=== PATIENT | male | born 1960 | race Caucasian/White ===

== ENCOUNTER 2022-03-04 07:46 | Emergency (ER) | payer BC, OTHER ==
--- NOTE | 2022-03-04 07:57 | ERPHSYRPT ---
- History of Present Illness Time Seen by Provider: 03/04/22 07:57 Historian: patient Exam Limitations: no limitations Physician History: This is a 61-year-old white male patient who has had a gastric bypass performed approximately 15 years ago in [facility] by Dr. Ríos. He presents with 1 month history of intermittent spontaneous nausea and vomiting that is been occurring every 2 to 3 days. He denies chest pain. He denies abdominal pain. He has had no diarrhea but occasionally has loose stools. What brought him in today is that he was feeling weak. He is still able to eat or drink but he is not eating or drinking as he did prior to 1 month ago. Patient has a history of diabetes and hypertension. He has no shortness of breath. He has not had any fevers Timing/Duration: other (Symptoms present for a month) Activities at Onset: none Severity of Pain-Max: none Severity of Pain-Current: none Modifying Factors: Improves With: vomiting Associated Symptoms: nausea, vomiting, weakness, No chest pain, No diarrhea, No fever/chills, No headache, No shortness of breath Previous symptoms: same symptoms as today, no recent treatment Allergies/Adverse Reactions: No Known Drug Allergies Allergy (Unverified 01/01/16 05:13) Home Medications: Aspirin/Calcium Carbonate/Mag [Aspirin Buffered 325 mg Tab] 325 mg PO DAILY 01/01/16 [History] Enalapril Maleate 10 mg [Vasotec 10 MG] 20 mg PO DAILY 01/01/16 [History] Ergocalciferol (Vitamin D2) [Vitamin D] 50,000 unit PO UD 01/01/16 [History] Hx Tetanus, Diphtheria Vaccination/Date Given: No Hx Influenza Vaccination/Date Given: Yes Hx Pneumococcal Vaccination/Date Given: No Travel Risk - International Travel Have you traveled outside of the country in past 3 weeks: No - Coronavirus Screening Are you exhibiting any of the following symptoms?: Yes Symptoms: Vomiting/Diarrhea Close contact with a COVID-19 positive Pt in past 14-21 Days: No - Review of Systems Constitutional: Weakness Eyes: No Symptoms Ears, Nose, & Throat: No Symptoms Respiratory: No Symptoms Cardiac: No Symptoms Abdominal/Gastrointestinal: Nausea, Vomiting, No Abdominal Pain, No Diarrhea, No Constipation Genitourinary Symptoms: No Symptoms Musculoskeletal: No Symptoms Skin: No Symptoms Neurological: No Symptoms Psychological: No Symptoms Endocrine: No Symptoms Hematologic/Lymphatic: No Symptoms Immunological/Allergic: No Symptoms All Other Systems: Reviewed and Negative - Past Medical History Pertinent Past Medical History: Yes Neurological History: No Pertinent History ENT History: Cataracts Cardiac History: Hypertension Respiratory History: No Pertinent History Endocrine Medical History: Diabetes Type II Musculoskeletal History: No Pertinent History GI Medical History: Other History: No Pertinent History Psycho-Social History: No Pertinent History Male Reproductive Disorders: No Pertinent History Other Medical History: ORAL CANCER - Past Surgical History Past Surgical History: Yes Neuro Surgical History: No Pertinent History Cardiac: No Pertinent History Respiratory: No Pertinent History Gastrointestinal: Other Genitourinary: No Pertinent History Musculoskeletal: No Pertinent History Male Surgical History: No Pertinent History Other Surgical History: GASTRIC BYPASS. REMOVAL OF ORAL CANCER 3 YRS AGO - Social History Smoking Status: Never smoker Exposure to second hand smoke: No Drug Use: none Patient Lives Alone: No - Nursing Vital Signs Nursing Vital Signs: Initial Vital Signs Temperature 97.2 F 03/04/22 07:57 Pulse Rate 92 H 03/04/22 07:57 Respiratory Rate 18 03/04/22 07:57 Blood Pressure 169/107 03/04/22 07:57 O2 Sat by Pulse Oximetry 99 03/04/22 07:57 Pain Scale Pain Intensity 2 - Physical Exam General Appearance: no apparent distress, alert, anxiety Eye Exam: PERRL/EOMI, eyes nml inspection Ears, Nose, Throat Exam: normal ENT inspection, moist mucous membranes Neck Exam: normal inspection, non-tender, supple, full range of motion Respiratory Exam: normal breath sounds, lungs clear, airway intact, No chest tenderness, No respiratory distress Cardiovascular Exam: regular rate/rhythm, normal heart sounds, normal peripheral pulses Gastrointestinal/Abdomen Exam: soft, normal bowel sounds, No tenderness, No guarding Rectal Exam: not done Back Exam: normal inspection, normal range of motion, No CVA tenderness, No vertebral tenderness Extremity Exam: normal inspection, normal range of motion, pelvis stable Neurologic Exam: alert, oriented x 3, cooperative, drug safety associate II-XII nml as tested, normal mood/affect, nml cerebellar function, nml station & gait, sensation nml Skin Exam: normal color, warm, dry Lymphatic Exam: No adenopathy SpO2 Interpretation: normal O2 Delivery: Room Air - Course Nursing assessment & vital signs reviewed: Yes EKG Interpreted by Me: RATE, Sinus Rhythm, NORMAL AXIS, NORMAL INTERVALS, NORMAL QRS, NORMAL ST-T, Other (No acute ischemic changes on today's EKG.) Ordered Tests: Active Orders 24 hr Category Date Time Status EKG-ER Only STAT Care 03/04/22 08:18 Active IV Insertion STAT Care 03/04/22 08:18 Active ABDOMEN AND PELVIS W/0 CONTRAS [CT] Stat Exams 03/04/22 08:18 Completed AMYLASE Stat Lab 03/04/22 08:00 Completed CBC W DIFF Stat Lab 03/04/22 08:00 Completed CMP Stat Lab 03/04/22 08:00 Completed LIPASE Stat Lab 03/04/22 08:00 Completed Lactic Acid Stat Lab 03/04/22 08:18 Completed Lactic Acid Stat Lab 03/04/22 10:34 Received TROPONIN Q4H Lab 03/04/22 08:00 Completed TROPONIN Q4H Lab 03/04/22 12:30 Ordered TROPONIN Q4H Lab 03/04/22 16:30 Ordered UA W/RFX CULTURE Stat Lab 03/04/22 10:24 Completed Medication Summary Generic Name Dose Route Start Last Admin Trade Name Freq PRN Reason Stop Dose Admin Sodium Chloride 1,000 mls @ 999 mls/hr 03/04/22 10:57 03/04/22 11:03 Sodium Chloride 0.9% 1000 Ml IV 03/04/22 11:57 999 mls/hr .Q1H1M STA Administration Discontinued Medications Generic Name Dose Route Start Last Admin Trade Name Freq PRN Reason Stop Dose Admin Sodium Chloride 1,000 mls @ 999 mls/hr 03/04/22 08:18 03/04/22 10:36 Sodium Chloride 0.9% 1000 Ml IV 03/04/22 09:18 Infused .Q1H1M STA Infusion Sodium Chloride Confirm 03/04/22 08:29 Sodium Chloride 0.9% 1000 Ml Administered 03/04/22 08:30 Dose 1,000 mls @ ud .ROUTE .STK-MED ONE Sodium Chloride Confirm 03/04/22 11:02 Sodium Chloride 0.9% 1000 Ml Administered 03/04/22 11:03 Dose 1,000 mls @ ud .ROUTE .STK-MED ONE Ondansetron HCl 4 mg 03/04/22 08:18 03/04/22 08:30 Ondansetron Hcl 4 Mg/2 Ml Vial IV 03/04/22 08:19 4 mg STAT ONE Administration Ondansetron HCl Confirm 03/04/22 08:29 Ondansetron Hcl 4 Mg/2 Ml Vial Administered 03/04/22 08:30 Dose 4 mg .ROUTE .STK-MED ONE Pantoprazole Sodium 40 mg 03/04/22 08:18 03/04/22 08:30 Pantoprazole 40 Mg Vial IV 03/04/22 08:19 40 mg STAT ONE Administration Pantoprazole Sodium Confirm 03/04/22 08:29 Pantoprazole 40 Mg Vial Administered 03/04/22 08:30 Dose 40 mg IV .STK-MED ONE Lab/Rad Data: Laboratory Result Diagrams 03/04/22 08:00 03/04/22 08:00 Laboratory Results 03/04/22 03/04/22 03/04/22 Range/Units 10:24 08:32 08:18 WBC (4.0-10.5) x10^3/uL RBC (4.1-5.6) x10^6/uL Hgb (12.5-18.0) g/dL Hct (42-50) % MCV (78-100) fL MCH (26-32) pg MCHC (32-36) g/dL RDW (11.5-14.0) % Plt Count (150-450) x10^3/uL MPV (7.5-11.0) fL Gran % (36.0-66.0) % Immature Gran % (Auto) (0.00-0.4) % Nucleat RBC Rel Count (0.00-0.1) % Eos # (Auto) (0-0.5) x10^3/uL Immature Gran # (Auto) (0.00-0.03) x10^3u/L Absolute Lymphs (auto) (1.0-4.6) x10^3/uL Absolute Monos (auto) (0.0-1.3) x10^3/uL Absolute Nucleated RBC (0.00-0.01) x10^3u/L Lymphocytes % (24.0-44.0) % Monocytes % (0.0-12.0) % Eosinophils % (0.00-5.0) % Basophils % (0.0-0.4) % Absolute Granulocytes (1.4-6.9) x10^3/uL Basophils # (0-0.4) x10^3/uL Sodium (137-145) mmol/L Potassium (3.5-5.1) mmol/L Chloride (98-107) mmol/L Carbon Dioxide (22-30) mmol/L Anion Gap (5-15) MEQ/L BUN (9-20) mg/dL Creatinine (0.66-1.25) mg/dL Estimated GFR ML/MIN Glucose (74-106) mg/dL Lactic Acid 2.5 H (0.4-2.0) Calcium (8.4-10.2) mg/dL Total Bilirubin (0.2-1.3) mg/dL AST (17-59) U/L ALT (0-50) U/L Alkaline Phosphatase (38-126) U/L Troponin I (0.000-0.034) ng/mL Serum Total Protein (6.3-8.2) g/dL Albumin (3.5-5.0) g/dL Amylase (30-110) U/L Lipase (23-300) U/L Urinalys Dipstick Clnc MAIN LAB Urine Color YELLOW (YELLOW) Urine Appearance CLEAR (CLEAR) Urine pH 7.0 (5-6) Ur Specific Vance 1.025 (1.005-1.025) POC Urine Protein Conf NEGATIVE (Negative) Urine Ketones NEGATIVE (NEGATIVE) Urine Nitrite NEGATIVE (NEGATIVE) Urine Bilirubin NEGATIVE (NEGATIVE) Urine Urobilinogen 0.2 (0-1) mg/dL Urine Leukocytes NEGATIVE (NEGATIVE) Urine WBC (Auto) 0-2 (0-5) /HPF Urine RBC (Auto) 0-2 (0-2) /HPF U Epithel Cells (Auto) RARE (FEW) /HPF Urine Bacteria (Auto) RARE (NEGATIVE) /HPF Urine RBC NEGATIVE (0-5) Franki/ul Urine Mucus (Auto) SLIGHT A (NEGATIVE) /HPF Ur Culture Indicated? NO Urine Glucose NEGATIVE (NEGATIVE) mg/dL Influenza Type A Ag NEGATIVE (NEGATIVE) Influenza Type B Ag NEGATIVE (NEGATIVE) RSV (PCR) NEGATIVE (Negative) SARS-CoV-2 (PCR) NEGATIVE (NEGATIVE) 03/04/22 03/04/22 03/04/22 Range/Units 08:00 08:00 08:00 WBC 5.3 (4.0-10.5) x10^3/uL RBC 4.62 (4.1-5.6) x10^6/uL Hgb 14.2 (12.5-18.0) g/dL Hct 43.6 (42-50) % MCV 94.4 (78-100) fL MCH 30.7 (26-32) pg MCHC 32.6 (32-36) g/dL RDW 13.1 (11.5-14.0) % Plt Count 240 (150-450) x10^3/uL MPV 11.1 H (7.5-11.0) fL Gran % 65.8 (36.0-66.0) % Immature Gran % (Auto) 0.2 (0.00-0.4) % Nucleat RBC Rel Count 0.0 (0.00-0.1) % Eos # (Auto) 0.10 (0-0.5) x10^3/uL Immature Gran # (Auto) 0.01 (0.00-0.03) x10^3u/L Absolute Lymphs (auto) 1.31 (1.0-4.6) x10^3/uL Absolute Monos (auto) 0.37 (0.0-1.3) x10^3/uL Absolute Nucleated RBC 0.00 (0.00-0.01) x10^3u/L Lymphocytes % 24.7 (24.0-44.0) % Monocytes % 7.0 (0.0-12.0) % Eosinophils % 1.9 (0.00-5.0) % Basophils % 0.4 (0.0-0.4) % Absolute Granulocytes 3.50 (1.4-6.9) x10^3/uL Basophils # 0.02 (0-0.4) x10^3/uL Sodium 135 L (137-145) mmol/L Potassium 4.4 (3.5-5.1) mmol/L Chloride 102 (98-107) mmol/L Carbon Dioxide 28 (22-30) mmol/L Anion Gap 9.3 (5-15) MEQ/L BUN 7 L (9-20) mg/dL Creatinine 0.70 (0.66-1.25) mg/dL Estimated GFR > 60.0 ML/MIN Glucose 171 H (74-106) mg/dL Lactic Acid (0.4-2.0) Calcium 9.3 (8.4-10.2) mg/dL Total Bilirubin 0.90 (0.2-1.3) mg/dL AST 30 (17-59) U/L ALT 20 (0-50) U/L Alkaline Phosphatase 70 (38-126) U/L Troponin I < 0.012 (0.000-0.034) ng/mL Serum Total Protein 6.9 (6.3-8.2) g/dL Albumin 3.9 (3.5-5.0) g/dL Amylase 44 (30-110) U/L Lipase 31 (23-300) U/L Urinalys Dipstick Clnc Urine Color (YELLOW) Urine Appearance (CLEAR) Urine pH (5-6) Ur Specific Vance (1.005-1.025) POC Urine Protein Conf (Negative) Urine Ketones (NEGATIVE) Urine Nitrite (NEGATIVE) Urine Bilirubin (NEGATIVE) Urine Urobilinogen (0-1) mg/dL Urine Leukocytes (NEGATIVE) Urine WBC (Auto) (0-5) /HPF Urine RBC (Auto) (0-2) /HPF U Epithel Cells (Auto) (FEW) /HPF Urine Bacteria (Auto) (NEGATIVE) /HPF Urine RBC (0-5) Franki/ul Urine Mucus (Auto) (NEGATIVE) /HPF Ur Culture Indicated? Urine Glucose (NEGATIVE) mg/dL Influenza Type A Ag (NEGATIVE) Influenza Type B Ag (NEGATIVE) RSV (PCR) (Negative) SARS-CoV-2 (PCR) (NEGATIVE) - Progress Progress: improved, re-examined Progress Note: 03/04/22 09:12 CT scan of the abdomen pelvis without contrast shows mild diffuse fecal stasis. There is a normal appendix. The noncontrasted stomach and bowel loops appear nonobstructed Counseled pt/family regarding: lab results, diagnosis, need for follow-up, rad results - Departure Departure Disposition: Home Clinical Impression: Recurrent vomiting Condition: Stable Critical Care Time: No Referrals: [facility] [NON-STAFF PHY W/O PRIVILEGES] - Follow up/PCP as directed Additional Instructions: Drink plenty of clear liquids. Call your prescribing provider and your gastric bypass surgeon for further recommendations and management. Take your medications as prescribed Prescriptions: Ondansetron ODT 4 MG [Zofran Odt 4 mg] 4 mg PO Q6H PRN PRN #10 tablet PRN Reason: Vomiting
[2022-03-04] MEDS ORDERED: Sodium Chloride 0.9% 1000 ML 1,000 ML IV STA ×2 (08:18→10:57)
[2022-03-04] MEDS ORDERED: PROTONIX 40 MG IV IV ONE ×2 (08:18→08:29)
[2022-03-04] MEDS ORDERED: Zofran 4 MG/2 ML VIAL IV ONE (08:18)
[2022-03-04 08:29] LABS: Basophil (Absolute #) 0.02 x10^3/uL (0-0.4); Eosinophil % 1.9 % (0.00-5.0); Hematocrit 43.6 % (42-50); Hemoglobin 14.2 g/dL (12.5-18.0); Lymphocyte (Absolute #) 1.31 x10^3/uL (1.0-4.6); Lymphocytes % 24.7 % (24.0-44.0); Mean Cell Volume 94.4 fL (78-100); Mean Corpuscular Hemoglobin 30.7 pg (26-32); Mean Corpuscular Hgb Concent. 32.6 g/dL (32-36); Mean Platelet Volume 11.1 fL (7.5-11.0); Monocyte (Absolute #) 0.37 x10^3/uL (0.0-1.3); Neutrophil % 65.8 % (36.0-66.0); Platelet Count 240 x10^3/uL (150-450); Red Blood Count 4.62 x10^6/uL (4.1-5.6); Red Cell Distribution Width 13.1 % (11.5-14.0); White Blood Count 5.3 x10^3/uL (4.0-10.5)
[2022-03-04] MEDS ORDERED: Sodium Chloride 0.9% 1000 ML 1,000 ML ONE ×2 (08:29→11:02)
[2022-03-04] MEDS ORDERED: Zofran 4 MG/2 ML VIAL ONE (08:29)
[2022-03-04 08:42] LABS: ALBUMIN 3.9 g/dL (3.5-5.0); ALKALINE PHOSPHATASE 70 U/L (38-126); AMYLASE 44 U/L (30-110); ANION GAP 9.3 MEQ/L (5-15); BLOOD UREA NITROGEN 7 mg/dL (9-20); CHLORIDE 102 mmol/L (98-107); Calcium 9.3 mg/dL (8.4-10.2); Carbon Dioxide 28 mmol/L (22-30); EST GLOMERULAR FILTRATION RATE > 60.0 ML/MIN; Glucose 171 mg/dL (74-106); LIPASE 31 U/L (23-300); Potassium 4.4 mmol/L (3.5-5.1); SGOT/AST 30 U/L (17-59); SGPT/ALT 20 U/L (0-50); SODIUM 135 mmol/L (137-145); Total Protein 6.9 g/dL (6.3-8.2)
--- NOTE | 2022-03-04 09:08 | XRAY ---
Indication: One month nausea and vomiting. Weakness. Multiple contiguous axial images obtained through the abdomen and pelvis without contrast. Comparison: None Lung bases demonstrate mild dependent atelectasis. No infiltrate or effusion. Heart not enlarged. There has been gastric bypass surgery. Noncontrasted stomach and bowel loops appear nonobstructed with normal appendix. Mild diffuse scattered colonic fecal debris throughout. Partially contracted gallbladder without gallstones or biliary distention. Tiny hepatic/splenic calcific granulomas. No free fluid/air. Remaining liver, gallbladder, pancreas, spleen, adrenal glands, kidneys, ureters, and bladder are unremarkable for noncontrast exam. Minimal aortoiliac calcifications without AAA. Osseous structures intact with mild degenerative changes throughout the thoracolumbar spine. No ventral or inguinal hernias. Impression: 1. Mild diffuse fecal stasis, multilevel degenerative spondylosis, arteriosclerotic disease, and old granulomatous disease. 2. Remaining CT abdomen/pelvis without contrast exam is negative.
[2022-03-04 09:10] LABS: INFLUENZA A NEGATIVE (NEGATIVE); INFLUENZA B NEGATIVE (NEGATIVE); RESPIRATORY SYNCTIAL VIRUS NEGATIVE (Negative); SARS-CoV-2 Xpert Express NEGATIVE (NEGATIVE)
[2022-03-04 10:56] LABS: Mucus SLIGHT /HPF (NEGATIVE)
[2022-03-04 10:57] LABS: Appearance CLEAR (CLEAR)
[2022-03-04 10:58] LABS: Bilirubin NEGATIVE (NEGATIVE); Dipstick done @ ? MAIN LAB; Glucose NEGATIVE (NEGATIVE); Ketones NEGATIVE (NEGATIVE); Nitrite NEGATIVE (NEGATIVE); Protein,Urine Dip NEGATIVE (Negative); RBC NEGATIVE Ery/ul (0-5); Specific Gravity 1.025 (1.005-1.025); Urobilinogen 0.2 mg/dL (0-1)
[2022-03-04 11:02] LABS: Bacteria RARE /HPF (NEGATIVE); Epithelial Cells RARE /HPF (FEW); RBC 0-2 /HPF (0-2); Urine Cultured Indicated? NO; WBC 0-2 /HPF (0-5)
[2022-03-04 12:24] VITALS: BP 140/74; PULSE 70; O2SAT 97
== END 2022-03-04 12:24 | disposition home or self-care (01) ==
LOC: ED 07:46
DX: R11.2 Nausea with vomiting, unspecified (principal); R53.1 Weakness; E11.9 Type 2 diabetes mellitus without complications; I10 Essential (primary) hypertension; Z79.899 Other long term (current) drug therapy
CPT/HCPCS: 0241U; 36000; 36415; 74176; 80053; 81015; 82150; 83605; 83690; 84484; 85025; 93005; 96360; 96361; 96374; 96375; 99284; J2405

== ENCOUNTER 2022-04-14 05:59 | Day surgery (SDC) | payer OTHER ==
[2022-04-14] MEDS ORDERED: Lactated Ringers 1,000 ML IV SCH (06:30)
[2022-04-14] MEDS ORDERED: Xylocaine-Mpf 2% 5 Ml Vial ONE (07:49)
[2022-04-14] MEDS ORDERED: DIPRIVAN 200 MG/20 ML IV ONE ×2 (07:49→08:04)
[2022-04-14] MEDS ORDERED: Versed 2 MG/2 ML Injection ONE (07:49)
[2022-04-14 08:58] VITALS: O2SAT 99
[2022-04-14 09:02] VITALS: BP 122/83; PULSE 52
--- NOTE | 2022-04-14 11:52 | OP ---
SURGERY DATE/TIME: 04/14/2022 0752 PREOPERATIVE DIAGNOSIS: Screening exam. POSTOPERATIVE DIAGNOSIS: Mild sigmoid diverticulosis otherwise normal colon. PROCEDURE: Colonoscopy. SURGEON: Dr. Shelton. ANESTHESIA: MAC. Medications given by anesthesia department. HISTORY: The patient is a 61-year-old white male presenting now for screening colonoscopy. He reports he had a normal exam ten years ago. He is having no problems presently. The patient is felt the need to have endoscopic evaluation for screening. He was appraised of the risks of the procedure including the risk of perforation, phlebitis, untoward reaction to medication, bleeding and missed lesions. The patient verbalized his understanding and desired to have the procedure performed. DESCRIPTION OF PROCEDURE: The patient was given the medications by the anesthesia department. He had continuous pulse oximetry, ECG monitoring and intermittent blood pressure monitoring during the examination. He was placed in the left lateral decubitus position. A digital rectal examination was performed and revealed normal anal sphincter tone, no masses and a normal prostate. The flexible Olympus pediatric colonoscope was used to intubate the rectum. A view of the colon was developed sequentially to the cecum. Upon insertion and withdrawal was noted a few scattered sigmoid diverticula otherwise no other mucosal lesions were encountered. The scope was removed from the patient who tolerated the procedure well and was sent back to OP recovery in good condition. The prep was noted to be good.
== END 2022-04-14 09:08 | disposition home or self-care (01) ==
LOC: SDC 05:59
PROVIDERS: ATTEND Family Medicine
DX: Z12.11 Encounter for screening for malignant neoplasm of colon (principal); K57.30 Diverticulosis of large intestine without perforation or abscess without bleeding
CPT/HCPCS: J2250; J2704

== ENCOUNTER 2022-10-23 20:47 | Emergency (ER) | payer OTHER ==
--- NOTE | 2022-10-23 20:53 | ERPHSYRPT ---
- History of Present Illness Time Seen by Provider: 10/23/22 20:53 Historian: patient, family Exam Limitations: no limitations Physician History: This is a 62-year-old white male patient of Dr. Marin who underwent a gastric bypass procedure approximately 15 years ago in [facility] by Dr. Otto. Patient presents with his who provided independent history, with left-sided abdominal pain. He did not wake up with it but at work he noticed it present and it has worsened throughout the afternoon and evening. It is worse and described as stabbing and sharp when he is bending over. He does not have any nausea vomiting or diarrhea symptoms. In the last 2 to 3 months the patient has lost 15 pounds. This was intentional weight loss. Patient has a history of hypertension and diabetes. He denies chest pain and he denies shortness of breath. He has had no fever cough symptoms. On the colonoscopy that was performed in January 2022, patient was told he has diverticulosis. Timing/Duration: today Quality: sharpness, stabbing Abdominal Pain Onset Location: LLQ Pain Radiation: no radiation Severity of Pain-Max: mild (To moderate when bending over) Severity of Pain-Current: mild (To moderate when bending over) Modifying Factors: Improves With: other (Worsen when he bends over) Associated Symptoms: denies symptoms Previous symptoms: no prior history Allergies/Adverse Reactions: No Known Drug Allergies Allergy (Verified 10/23/22 20:59) Home Medications: Lisinopril/Hydrochlorothiazide [Lisinopril-Hctz 20-25 mg Tab] 1 tab PO DAILY 04/02/22 [History] Trazodone HCl 300 mg PO HS 04/02/22 [History] Aspirin 325 mg PO DAILY 04/14/22 [History] Hx Tetanus, Diphtheria Vaccination/Date Given: No Hx Influenza Vaccination/Date Given: Yes Hx Pneumococcal Vaccination/Date Given: No Travel Risk - International Travel Have you traveled outside of the country in past 3 weeks: No - Coronavirus Screening Are you exhibiting any of the following symptoms?: No Close contact with a COVID-19 positive Pt in past 14-21 Days: No - Vaccine Status Have you recieved a Covid-19 vaccination: No - Review of Systems Constitutional: No Symptoms Eyes: No Symptoms Ears, Nose, & Throat: No Symptoms Respiratory: No Symptoms Cardiac: No Symptoms Abdominal/Gastrointestinal: Abdominal Pain (Left lower quadrant) Genitourinary Symptoms: No Symptoms Musculoskeletal: No Symptoms Skin: No Symptoms Neurological: No Symptoms Psychological: No Symptoms Endocrine: No Symptoms Hematologic/Lymphatic: No Symptoms Immunological/Allergic: No Symptoms All Other Systems: Reviewed and Negative - Past Medical History Pertinent Past Medical History: Yes Neurological History: No Pertinent History ENT History: Cataracts Cardiac History: Hypertension Respiratory History: No Pertinent History Endocrine Medical History: No Pertinent History Musculoskeletal History: No Pertinent History GI Medical History: Other History: No Pertinent History Psycho-Social History: No Pertinent History Male Reproductive Disorders: No Pertinent History Other Medical History: Formerly DM2 prior to gastric bypass - Past Surgical History Past Surgical History: Yes Neuro Surgical History: No Pertinent History Cardiac: No Pertinent History Respiratory: No Pertinent History Gastrointestinal: Other Genitourinary: No Pertinent History Musculoskeletal: No Pertinent History Male Surgical History: No Pertinent History Other Surgical History: GASTRIC BYPASS. REMOVAL OF ORAL CANCER 3 YRS AGO. bilateral hand surgery - Social History Smoking Status: Never smoker Exposure to second hand smoke: No Drug Use: none Patient Lives Alone: No - Nursing Vital Signs Nursing Vital Signs: Initial Vital Signs Temperature 97.9 F 10/23/22 21:00 Pulse Rate 89 10/23/22 21:00 Respiratory Rate 18 10/23/22 21:00 Blood Pressure 136/81 10/23/22 21:00 O2 Sat by Pulse Oximetry 95 10/23/22 21:00 Pain Scale Pain Intensity 7 - Physical Exam General Appearance: no apparent distress, alert Eye Exam: PERRL/EOMI, eyes nml inspection Ears, Nose, Throat Exam: normal ENT inspection, moist mucous membranes Neck Exam: normal inspection, non-tender, supple, full range of motion Cardiovascular Exam: regular rate/rhythm, normal heart sounds, normal peripheral pulses Gastrointestinal/Abdomen Exam: soft, normal bowel sounds, tenderness (If lower quadrant), guarding (Left lower quadrant to palpation), No pulsatile mass Rectal Exam: not done Back Exam: normal inspection, normal range of motion, No CVA tenderness, No vertebral tenderness Extremity Exam: normal inspection, normal range of motion, pelvis stable Neurologic Exam: alert, oriented x 3, cooperative, can operator II-XII nml as tested, normal mood/affect, nml cerebellar function, nml station & gait, sensation nml Skin Exam: normal color, warm, dry Lymphatic Exam: No adenopathy SpO2 Interpretation: normal O2 Delivery: Room Air - Course Nursing assessment & vital signs reviewed: Yes Ordered Tests: Active Orders 24 hr Category Date Time Status IV Insertion STAT Care 10/23/22 21:10 Active ABDOMEN AND PELVIS W/0 CONTRAS [CT] Stat Exams 10/23/22 21:20 Taken AMYLASE Stat Lab 10/23/22 21:29 Completed CBC W DIFF Stat Lab 10/23/22 21:29 Completed CMP Stat Lab 10/23/22 21:29 Completed LIPASE Stat Lab 10/23/22 21:29 Completed UA W/RFX UR CULTURE Stat Lab 10/23/22 21:12 Completed Medication Summary Generic Name Dose Route Start Last Admin Trade Name Freq PRN Reason Stop Dose Admin Sodium Chloride 1,000 mls @ 999 mls/hr 10/23/22 21:10 10/23/22 21:14 Sodium Chloride 0.9% 1000 Ml IV 10/23/22 22:10 999 mls/hr .Q1H1M STA Administration Discontinued Medications Generic Name Dose Route Start Last Admin Trade Name Freq PRN Reason Stop Dose Admin Sodium Chloride Confirm 10/23/22 21:14 Sodium Chloride 0.9% 1000 Ml Administered 10/23/22 21:15 Dose 1,000 mls @ ud .ROUTE .STK-MED ONE Lab/Rad Data: Laboratory Result Diagrams 10/23/22 21:29 10/23/22 21:29 Laboratory Results 10/23/22 10/23/22 10/23/22 Range/Units 21:29 21:29 21:12 WBC 8.7 (4.0-10.5) x10^3/uL RBC 4.70 (4.1-5.6) x10^6/uL Hgb 14.5 (12.5-18.0) g/dL Hct 43.3 (42-50) % MCV 92.1 (78-100) fL MCH 30.9 (26-32) pg MCHC 33.5 (32-36) g/dL RDW 12.3 (11.5-14.0) % Plt Count 250 (150-450) x10^3/uL MPV 10.8 (7.5-11.0) fL Gran % 68.0 H (36.0-66.0) % Immature Gran % (Auto) 0.3 (0.00-0.4) % Nucleat RBC Rel Count 0.0 (0.00-0.1) % Eos # (Auto) 0.19 (0-0.5) x10^3/uL Immature Gran # (Auto) 0.03 (0.00-0.03) x10^3u/L Absolute Lymphs (auto) 1.94 (1.0-4.6) x10^3/uL Absolute Monos (auto) 0.58 (0.0-1.3) x10^3/uL Absolute Nucleated RBC 0.00 (0.00-0.01) x10^3u/L Lymphocytes % 22.3 L (24.0-44.0) % Monocytes % 6.7 (0.0-12.0) % Eosinophils % 2.2 (0.00-5.0) % Basophils % 0.5 (0.0-0.4) % Absolute Granulocytes 5.92 (1.4-6.9) x10^3/uL Basophils # 0.04 (0-0.4) x10^3/uL Sodium 139 (137-145) mmol/L Potassium 4.1 (3.5-5.1) mmol/L Chloride 100 (98-107) mmol/L Carbon Dioxide 32 H (22-30) mmol/L Anion Gap 12.0 (5-15) MEQ/L BUN 16 (9-20) mg/dL Creatinine 0.93 (0.66-1.25) mg/dL Estimated GFR > 60.0 ML/MIN Glucose 88 (74-106) mg/dL Calcium 9.3 (8.4-10.2) mg/dL Total Bilirubin 0.50 (0.2-1.3) mg/dL AST 35 (17-59) U/L ALT 35 (0-50) U/L Alkaline Phosphatase 90 (38-126) U/L Serum Total Protein 7.5 (6.3-8.2) g/dL Albumin 4.3 (3.5-5.0) g/dL Amylase 65 (30-110) U/L Lipase 42 (23-300) U/L Urine Color Yellow (Yellow) Urine Appearance Clear (Clear) Urine pH 6.0 (4.6-8.0) Ur Specific [place] 1.020 (1.005-1.030) Urine Protein Negative (Negative) Urine Glucose (UA) Negative (Negative) mg/dL Urine Ketones 15 A (Negative) Urine Blood Negative (Negative) Urine Nitrite Negative (Negative) Urine Bilirubin Negative (Negative) Urine Urobilinogen 1.0 A (0.2) mg/dL Ur Leukocyte Esterase Negative (Negative) U Hyaline Cast (Auto) NONE SEEN (0-2) /LPF Urine Microscopic RBC 0-2 (0-5) /HPF Urine Microscopic WBC 0-2 (0-5) /HPF Ur Epithelial Cells None Seen (None Seen) /HPF Urine Bacteria None Seen (None Seen) /HPF Urine Culture Reflexed NO (NO) - Progress Progress: improved, pain not gone completely, re-examined Progress Note: 10/23/22 22:09 Cat scan of the abdomen pelvis without contrast shows diverticulosis without diverticulitis. This study was interpreted by the radiologist and I reviewed the impression. This patient's medical issue is 1 of moderate complexity. Level complexity in the workup performed is based on review of the patient's past medical history, review the patient's medication list, review of the patient's drug allergy list, history present illness and physical findings on examination. This workup includes placement of an intravenous line, infusion of 1 L normal saline, CBC, CMP, amylase, lipase, urinalysis, and CT scan of the abdomen and pelvis. I reviewed the results of this workup. There is no evidence of any acute, emergent process. Patient is to follow-up with his primary care provider tomorrow, 10/24/2022, for further evaluation management. Counseled pt/family regarding: lab results, diagnosis, need for follow-up, rad results Medical Desision Making - Independent Historian Additional History obtained from: Spouse - Diagnostic Testing Diagnostic test were ordered, analyzed, and reviewed by me: Yes Radiological Interpretation: Reviewed by me, Teleradiologist Report - Risk of complications Low Risk: Low risk of morbidity from additional dx testing or treatment - Departure Departure Disposition: Home Clinical Impression: Abdominal pain Condition: Stable Critical Care Time: No Referrals: BRISEYDA MARIN MD [Primary Care Provider] - Follow up/PCP as directed Additional Instructions: Drink plenty of clear liquids. Advance your diet slowly. Avoid fatty greasy spicy foods. May use Tylenol and ibuprofen for pain control. Call your primary care doctor tomorrow, 10/24/2022, to arrange a follow-up appointment for further evaluation and management.
[2022-10-23] MEDS ORDERED: Sodium Chloride 0.9% 1000 ML 1,000 ML IV STA (21:10)
[2022-10-23 21:13] VITALS: RESP 18; TEMP 97.9
[2022-10-23] MEDS ORDERED: Sodium Chloride 0.9% 1000 ML 1,000 ML ONE (21:14)
[2022-10-23 21:32] LABS: Absolute Neutrophil Ct (ANC) 5.92 x10^3/uL (1.4-6.9); BASOPHIL % 0.5 % (0.0-0.4); Basophil (Absolute #) 0.04 x10^3/uL (0-0.4); Eosinophil % 2.2 % (0.00-5.0); Eosinophil (Absolute #) 0.19 x10^3/uL (0-0.5); Hematocrit 43.3 % (42-50); Hemoglobin 14.5 g/dL (12.5-18.0); IMMATURE GRAN # 0.03 x10^3u/L (0.00-0.03); IMMATURE GRAN % 0.3 % (0.00-0.4); Lymphocyte (Absolute #) 1.94 x10^3/uL (1.0-4.6); Lymphocytes % 22.3 % (24.0-44.0); Mean Cell Volume 92.1 fL (78-100); Mean Corpuscular Hemoglobin 30.9 pg (26-32); Mean Corpuscular Hgb Concent. 33.5 g/dL (32-36); Mean Platelet Volume 10.8 fL (7.5-11.0); Monocyte (Absolute #) 0.58 x10^3/uL (0.0-1.3); Monocytes % 6.7 % (0.0-12.0); Platelet Count 250 x10^3/uL (150-450); Red Cell Distribution Width 12.3 % (11.5-14.0); White Blood Count 8.7 x10^3/uL (4.0-10.5)
[2022-10-23 21:39] LABS: Appearance Clear (Clear); Bacteria None Seen /HPF (None Seen); Bilirubin Negative (Negative); Blood Negative (Negative); Epithelial Cells None Seen /HPF (None Seen); Glucose, Urine Negative (Negative); Hyaline Casts NONE SEEN /LPF (0-2); Ketones 15 (Negative); Leukocyte Esterase Negative (Negative); Nitrite Negative (Negative); Protein,Urine Dip Negative (Negative); RBC 0-2 /HPF (0-5); WBC 0-2 /HPF (0-5)
[2022-10-23 21:42] LABS: ADD URINE CULTURE? NO (NO)
[2022-10-23 21:46] LABS: ALBUMIN 4.3 g/dL (3.5-5.0); ALKALINE PHOSPHATASE 90 U/L (38-126); AMYLASE 65 U/L (30-110); BLOOD UREA NITROGEN 16 mg/dL (9-20); CHLORIDE 100 mmol/L (98-107); Calcium 9.3 mg/dL (8.4-10.2); Carbon Dioxide 32 mmol/L (22-30); Creatinine 1 0.93 mg/dL (0.66-1.25); EST GLOMERULAR FILTRATION RATE > 60.0 ML/MIN; Glucose 88 mg/dL (74-106); LIPASE 42 U/L (23-300); Potassium 4.1 mmol/L (3.5-5.1); SGOT/AST 35 U/L (17-59); SGPT/ALT 35 U/L (0-50); SODIUM 139 mmol/L (137-145); Total Protein 7.5 g/dL (6.3-8.2)
[2022-10-23 22:20] VITALS: BP 103/49; PULSE 60; O2SAT 97
--- NOTE | 2022-10-24 08:43 | XRAY ---
Indication: Left lower quadrant pain. Multiple contiguous axial images obtained through the abdomen and pelvis without contrast. Comparison: March 04, 2022 Lung bases again demonstrates minimal dependent atelectasis. Heart not enlarged. Again previous gastric bypass surgery. Stomach demonstrates new intraluminal radiopacities either ingested medication/bismuth or barium. Noncontrasted bowel loops appear nonobstructed with normal appearing appendix. Again mild scattered descending and sigmoid diverticulosis without diverticulitis. Stable incidental tiny hepatic/splenic calcified granulomas. No free fluid/air. Remaining liver, gallbladder, pancreas, spleen, adrenal glands, kidneys, ureters, and bladder are unremarkable for noncontrast exam. Again minimal scattered aortoiliac calcifications without AAA. Osseous structures intact again with mild degenerative changes throughout the spine. Impression: 1. Again chronic findings including colonic diverticulosis, arteriosclerotic disease, degenerative spondylosis, and old granulomatous disease. 2. Remaining CT abdomen/pelvis without contrast exam continues to be negative.
== END 2022-10-23 22:28 | disposition home or self-care (01) ==
LOC: ED 20:47
DX: R10.32 Left lower quadrant pain (principal); I10 Essential (primary) hypertension; E11.9 Type 2 diabetes mellitus without complications; Z79.899 Other long term (current) drug therapy; Z28.310 Unvaccinated for COVID-19; Z98.84 Bariatric surgery status
CPT/HCPCS: 36000; 36415; 74176; 80053; 81001; 82150; 83690; 85025; 96360; 99284

== ENCOUNTER 2023-07-10 19:05 | Emergency (ER) | payer OTHER ==
[2023-07-10 20:20] VITALS: BP 178/89; PULSE 63; RESP 18; TEMP 98.6; O2SAT 93
--- NOTE | 2023-07-10 21:17 | ERPHSYRPT ---
- History of Present Illness Time Seen by Provider: 07/10/23 19:45 Source: patient Exam Limitations: physical impairment Patient Subjective Stated Complaint: C/O left hip/buttocks pain that travels down his left leg. States he has had the pain for a few days and can't get into his PCP for 3 weeks. Triage Nursing Assessment: Patient ambulated back to ER with a slow gait. Bearing weight without difficulties. He is alert and orientd. Denies falls or injury to area of pain. Skin tone normal. NO SOB. Physician History: 63 years old male presented in the ER with 3 days history of right hip pain with radiation to right upper posterior thigh without any fall or trauma. Denies any significant aggravating or relieving factors. No swelling of lower extremity. Denies any history of back pain. No numbness or tingling in the lower extremity. No loss of bowel or bladder control or perineal numbness. Patient has a minimal pain currently. Does not want any pain medications. Allergies/Adverse Reactions: No Known Drug Allergies Allergy (Verified 07/10/23 20:10) Home Medications: Lisinopril/Hydrochlorothiazide [Lisinopril-Hctz 20-25 mg Tab] 1 tab PO DAILY 0 04/02/22 [History] Trazodone HCl 300 mg PO HS 04/02/22 [History] Aspirin 325 mg PO DAILY 04/14/22 [History] Hx Tetanus, Diphtheria Vaccination/Date Given: Yes Hx Influenza Vaccination/Date Given: Yes Hx Pneumococcal Vaccination/Date Given: No Immunizations Up to Date: Yes Travel Risk - International Travel Have you traveled outside of the country in past 3 weeks: No - Emerging Infectious Disease Are you exhibiting symptoms associated with any current EIDs: No - Review of Systems Constitutional: No Symptoms Respiratory: No Symptoms Cardiac: No Symptoms Abdominal/Gastrointestinal: No Symptoms Genitourinary Symptoms: No Symptoms Musculoskeletal: Joint Pain Skin: No Symptoms Neurological: No Symptoms Psychological: No Symptoms Endocrine: No Symptoms Hematologic/Lymphatic: No Symptoms - Past Medical History Pertinent Past Medical History: Yes Neurological History: No Pertinent History ENT History: Cataracts Cardiac History: Hypertension Respiratory History: No Pertinent History Endocrine Medical History: No Pertinent History Musculoskeletal History: No Pertinent History GI Medical History: Other History: No Pertinent History Psycho-Social History: No Pertinent History Male Reproductive Disorders: No Pertinent History Other Medical History: Formerly DM2 prior to gastric bypass - Past Surgical History Past Surgical History: Yes Neuro Surgical History: No Pertinent History Cardiac: No Pertinent History Respiratory: No Pertinent History Gastrointestinal: Other Genitourinary: No Pertinent History Musculoskeletal: No Pertinent History Male Surgical History: No Pertinent History Other Surgical History: GASTRIC BYPASS, REMOVAL OF ORAL CANCER 3 YRS AGO, bilateral hand surgery - Social History Smoking Status: Never smoker Exposure to second hand smoke: No Drug Use: none Patient Lives Alone: No - Nursing Vital Signs Nursing Vital Signs: Initial Vital Signs Temperature 98.6 F 07/10/23 20:11 Pulse Rate 63 07/10/23 20:11 Respiratory Rate 18 07/10/23 20:11 Blood Pressure 178/89 07/10/23 20:11 O2 Sat by Pulse Oximetry 93 L 07/10/23 20:11 Pain Scale Pain Intensity 5 - Physical Exam General Appearance: no apparent distress, alert Neck Exam: normal inspection, full range of motion Cardiovascular/Respiratory Exam: normal breath sounds, regular rate/rhythm Gastrointestinal/Abdominal Exam: non-tender, soft Back Exam: normal inspection, normal range of motion, No CVA tenderness, No vertebral tenderness Hips Exam: right: non-tender, bone tenderness, pain, soft tissue tenderness, bilateral: normal inspection, normal range of motion, no evidence of injury Legs Exam: bilateral leg: non-tender, normal inspection, normal range of motion, no evidence of injury Knees Exam: bilateral knee: non-tender, normal inspection, normal range of motion, no evidence of injury Neuro/Tendon Exam: normal sensation, normal motor functions, normal tendon funct ions Mental Status Exam: alert, oriented x 3, cooperative Skin Exam: normal color SpO2 Interpretation: normal SpO2: 93 O2 Delivery: Room Air Ordered Tests: Active Orders 24 hr Category Date Time Status HIP UNI (2V) INCL PEL IF DONE Stat Exams 07/10/23 20:37 Taken - Progress Progress: unchanged Progress Note: 07/10/23 21:14 63-year-old with history of hypertension is evaluated in the ER for left hip pain for 3 days without fall trauma exertional activity/workout. Goes to upper posterior thigh. Patient has some tenderness in the right hip area. No swelling redness or increased temperature. Negative neuro exam in lower extremity. No muscular tenderness or swelling in the thigh/calf. Negative Homans' sign. Patient does not want any pain medications. I have obtained x- rays which are negative for fracture dislocation reviewed by me, official report is pending.. His pain could be muscle strain versus arthritis versus bursitis versus radiculopathy from back. I would give him meloxicam to go home and recommended outpatient orthopedics follow-up. Discussed signs symptoms of worsening needing return to ER which he seems understanding. 07/10/23 21:17 Counseled pt/family regarding: diagnosis, need for follow-up, rad results Medical Desision Making - Diagnostic Testing Diagnostic test were ordered, analyzed, and reviewed by me: Yes Radiological Interpretation: Interpreted by me, Reviewed by me - Risk of complications The pt has a mod risk of morbidity or mortality based on: Need for prescription drug management - Departure Departure Disposition: Home Clinical Impression: Left hip pain Condition: Stable Critical Care Time: No Referrals: BRISEYDA MARIN MD [Primary Care Provider] - Follow Up with PCP/3 days ESTEFANÍA LAUREANO MD [ACTIVE STAFF] - Follow up/PCP as directed (Call Thursday morning for appointment for reevaluation) Instructions: Hip pain in adults Additional Instructions: Take Tylenol and meloxicam as recommended. Follow-up with primary care and orthopedics for reevaluation. Return to ER for worsening pain, numbness tingling weakness of lower extremities, loss of bowel or bladder control or swelling of lower extremity etc. Prescriptions: Meloxicam 15 mg [Meloxicam 15 MG] 15 mg PO DAILY 15 Days #15 tablet
--- NOTE | 2023-07-11 07:45 | XRAY ---
Indication: Left hip pain. No known injury. Comparison: None AP pelvis and 2 view left hip demonstrates osteopenia, minimal lower lumbar degenerative changes, and tiny greater trochanter spurring bilaterally. No other bony, articular, or soft tissue abnormalities.
== END 2023-07-10 21:43 | disposition home or self-care (01) ==
LOC: ED 19:05
DX: M25.551 Pain in right hip (principal); I10 Essential (primary) hypertension; Z79.899 Other long term (current) drug therapy
CPT/HCPCS: 73502; 99282

== ENCOUNTER 2023-07-14 15:35 | Emergency (ER) | payer OTHER ==
[2023-07-14 16:30] VITALS: PULSE 72; TEMP 97.2
[2023-07-14 17:14] VITALS: O2SAT 97
[2023-07-14] MEDS ORDERED: TORAdol 30 mg Injection ONE (17:27)
[2023-07-14] MEDS ORDERED: DECADRON 10MG INJ. ONE (17:27)
[2023-07-14] MEDS: DECADRON 10MG INJ. IM ONE (17:28)
[2023-07-14] MEDS: TORAdol 30 mg Injection IM ONE (17:28)
--- NOTE | 2023-07-14 18:24 | ERPHSYRPT ---
- History of Present Illness Time Seen by Provider: 07/14/23 17:20 Source: patient Exam Limitations: no limitations Patient Subjective Stated Complaint: pt c/o of left sided back pain that travels down the left leg, pt believes it to be his sciatica Triage Nursing Assessment: Pt brought self to the ER, hypertensive, rates pain as 10/10, pt walked into the ER with a slow stable gait, pulses normal, skin n/w/d, denies injury to back, pt does construction work, pt was here a couple of days ago and was not happy with the doctor Physician History: 63-year-old male history of sciatica presents emergency department for ev aluation of sciatica pain. Patient was in our ED couple days ago for the same. Patient received meloxicam with no significant improvement. At that time patient had a x-ray of the left hip. No acute findings. No fracture dislocations. Patient describes a pain that radiates from his buttock area down his left leg. Certain movement triggers pain to his low back. No abdominal pain. No chest pain or shortness of breath. No saddle anesthesia. No change in bowel bladder function. No recent back procedure no fever. Patient voices no other complaints or concerns at this time. Patient requesting steroid as steroid has resolved his sciatica back pain in the past Portions of this note were created with voice recognition technology. There may be grammatical, spelling, punctuation or sound alike errors Timing/Duration: day(s) (3 days) Method of Injury: unknown Quality: burning, dull Back Pain Location: lumbar spine Back Pain Radiation: upper legs (Pain radiates to left lower leg) Severity of Pain-Max: moderate Severity of Pain-Current: moderate Modifying Factors: Improves With: other (Sitting up reproduces pain) Associated Symptoms: denies symptoms Previous symptoms: same symptoms as today Allergies/Adverse Reactions: No Known Drug Allergies Allergy (Verified 07/14/23 16:30) Home Medications: Lisinopril/Hydrochlorothiazide [Lisinopril-Hctz 20-25 mg Tab] 1 tab PO DAILY 04/02/22 [History] Trazodone HCl 300 mg PO HS 04/02/22 [History] Aspirin 325 mg PO DAILY 04/14/22 [History] Hx Tetanus, Diphtheria Vaccination/Date Given: Yes Hx Influenza Vaccination/Date Given: Yes Hx Pneumococcal Vaccination/Date Given: No Travel Risk - International Travel Have you traveled outside of the country in past 3 weeks: No - Emerging Infectious Disease Are you exhibiting symptoms associated with any current EIDs: No - Review of Systems Constitutional: No Symptoms, No Fever, No Chills Eyes: No Symptoms Ears, Nose, & Throat: No Symptoms Respiratory: No Symptoms, No Cough, No Dyspnea Cardiac: No Symptoms, No Chest Pain, No Edema, No Syncope Abdominal/Gastrointestinal: No Symptoms, No Abdominal Pain, No Nausea, No Vomiting, No Diarrhea Genitourinary Symptoms: No Symptoms, No Dysuria Musculoskeletal: No Symptoms, No Back Pain, No Neck Pain Skin: No Symptoms, No Rash Neurological: No Symptoms, No Dizziness, No Focal Weakness, No Sensory Changes Psychological: No Symptoms Endocrine: No Symptoms Hematologic/Lymphatic: No Symptoms Immunological/Allergic: No Symptoms All Other Systems: Reviewed and Negative - Past Medical History Pertinent Past Medical History: Yes Neurological History: No Pertinent History ENT History: Cataracts Cardiac History: Hypertension Respiratory History: No Pertinent History Endocrine Medical History: No Pertinent History Musculoskeletal History: No Pertinent History GI Medical History: Other History: No Pertinent History Psycho-Social History: No Pertinent History Male Reproductive Disorders: No Pertinent History Other Medical History: Formerly DM2 prior to gastric bypass - Past Surgical History Past Surgical History: Yes Neuro Surgical History: No Pertinent History Cardiac: No Pertinent History Respiratory: No Pertinent History Gastrointestinal: Other Genitourinary: No Pertinent History Musculoskeletal: No Pertinent History Male Surgical History: No Pertinent History Other Surgical History: GASTRIC BYPASS, REMOVAL OF ORAL CANCER 3 YRS AGO, bilateral hand surgery - Social History Smoking Status: Never smoker Exposure to second hand smoke: No Drug Use: none Patient Lives Alone: No - Nursing Vital Signs Nursing Vital Signs: Initial Vital Signs Temperature 97.2 F 07/14/23 16:20 Pulse Rate 72 07/14/23 16:20 Blood Pressure 164/90 07/14/23 16:20 O2 Sat by Pulse Oximetry 95 07/14/23 16:20 Pain Scale Pain Intensity [Left Distal 10 Back] Pain Intensity 10 - Physical Exam General Appearance: no apparent distress, alert Eye Exam: PERRL/EOMI, eyes nml inspection Neck Exam: normal inspection, non-tender, supple, full range of motion, No meningismus, No midline tenderness Respiratory Exam: normal breath sounds, lungs clear, airway intact, No respiratory distress Cardiovascular Exam: regular rate/rhythm, normal heart sounds Gastrointestinal Exam: soft, other (No pulsatile abdominal masses), No tenderness, No mass Extremity Exam: normal inspection, normal range of motion, other (PT DP pulse palpable.), No calf tenderness, No pedal edema Peripheral Pulses: dorsalis-pedis (R): 2+, dorsalis-pedis (L): 2+ Neurologic Exam: alert, oriented x 3, cooperative, shade matcher II-XII nml as tested, normal mood/affect, nml station & gait, sensation nml, No motor deficits Skin Exam: normal color, warm, dry, No rash Lymphatic Exam: No adenopathy SpO2 Interpretation: normal SpO2: 97 O2 Delivery: Room Air - Course Nursing assessment & vital signs reviewed: Yes Ordered Tests: Medication Summary Discontinued Medications Generic Name Dose Route Start Last Admin Trade Name Manav PRN Reason Stop Dose Admin Dexamethasone Sodium Phosphate 10 mg 07/14/23 17:23 07/14/23 17:28 Dexamethasone Sod Phosphate 10 Mg/Ml IM 07/14/23 17:24 10 mg STAT ONE Administration Dexamethasone Sodium Phosphate Confirm 07/14/23 17:27 Dexamethasone Sod Phosphate 10 Mg/Ml Administered 07/14/23 17:28 Dose 10 mg .ROUTE .STK-MED ONE Ketorolac Tromethamine 60 mg 07/14/23 17:23 07/14/23 17:28 Ketorolac Tromethamine 30 Mg/Ml Inj IM 07/14/23 17:24 60 mg STAT ONE Administration Ketorolac Tromethamine Confirm 07/14/23 17:27 Ketorolac Tromethamine 30 Mg/Ml Inj Administered 07/14/23 17:28 Dose 60 mg .ROUTE .STK-MED ONE - Progress Progress: improved Progress Note: 63-year-old male presents to the emergency department for evaluation of low back pain radiating to his left leg. Physical exam negative for pulsatile abdominal masses. PT DP pulses equal bilaterally. No associated chest pain or shortness of breath. Positive straight leg raise exam. Patient had imaging studies during his last visit a couple days ago. No fracture dislocations. No interval trauma. Patient has had this pain in the past. Steroids helped the symptoms. Patient requested steroids this time around. Patient was discharged with meloxicam which she says did not significantly help. Patient received a dose of Decadron and Toradol in our ED patient significantly improved. Patient now requesting discharge. Vital stable. Patient currently asymptomatic resting comfortably. Patient voices no other complaints or concerns at this time. Will discharge home. Patient agrees to follow-up with his primary care doctor within 48 hours for evaluation. Portions of this note were created with voice recognition technology. There may be grammatical, spelling, punctuation or sound alike errors Complexity problem addressed is moderate acute complicated No critical care time Complexity data reviewed and analyzed is none. Diagnosis made based on history and physical exam Risk of complication and or risk of morbidity/mortality patient management is moderate Vital stable. Time spent discharge patient approximately 20 minutes. Plan of care established for shared decision making. No social determinants health present impede follow-up. Portions of this note were created with voice recognition technology. There may be grammatical, spelling, punctuation or sound alike errors 07/14/23 18:27 Counseled pt/family regarding: diagnosis - Departure Departure Disposition: Home Clinical Impression: Sciatica Condition: Stable Critical Care Time: No Referrals: BRISEYDA MARIN MD [Primary Care Provider] - Follow up/PCP as directed Additional Instructions: Discharge/Care Plan KEILA LANZA was seen on 07/14/23 in the Emergency Room. The patient was counseled regarding Diagnosis,Lab results, Imaging studies, need for follow up and when to return to the Emergency Room. Prescriptions given: Discharge Note I have spoken with the patient and/or caregivers. I have explained the patient's condition, diagnosis and treatment plan based on the information available to me at this time. I have answered the patient's and/or caregiver's questions and addressed any concerns. The patient and/or caregivers have as good understanding of the patient's diagnosis, condition and treatment plan as can be expected at this point. The vital signs have been stable. The patient's condition is stable and appropriate for discharge from the emergency department. The patient will pursue further outpatient evaluation with the primary care physician or other designated or consulting physician as outlined in the disch arge instructions. The patient and/or caregivers are agreeable to this plan of care and follow-up instructions have been explained in detail. The patient and/or caregivers have received these instruction. The patient/and or caregivers are aware that any significant change in condition or worsening of symptoms should prompt an immediate return to this or the closest emergency department or call 911.
[2023-07-14 18:28] VITALS: BP 161/84
== END 2023-07-14 18:30 | disposition home or self-care (01) ==
LOC: ED 15:35
DX: M54.32 Sciatica, left side (principal); I10 Essential (primary) hypertension; Z79.899 Other long term (current) drug therapy
CPT/HCPCS: 96372; 99283; J1100; J1885

== ENCOUNTER 2023-07-18 17:10 | Emergency (ER) | payer OTHER ==
--- NOTE | 2023-07-18 17:23 | ERPHSYRPT ---
- History of Present Illness Time Seen by Provider: 07/18/23 17:23 Historian: patient Exam Limitations: no limitations Physician History: This is a 63-year-old white male who is obese and a patient of Dr. Marin who presents with first dark loose stools that began last evening. Today he has had several episodes of dark stools with intermittent bright bloody stools that are present. Patient was a little concerned because he started to feel little dizzy or lightheaded. Patient has had a gastric bypass in the past. He did start taking meloxicam. He took this medicine for approximately 4 days. It was not helping his leg pain so he switched to Tylenol alternating with Aleve 3 times a day. Patient does not have abdominal pain but he feels as though he is bloated and distended. Patient does not consume alcohol. He has no known history of peptic ulcer disease or gastritis. It has been a while since he has had an upper and lower endoscopy. He has no bleeding or clotting disorders. He has no liver disease. He has not been on antibiotics. Patient has a history of hypertension. Timing/Duration: yesterday Activities at Onset: none Quality: fullness, other (Mildly distended) Severity of Pain-Max: none Severity of Pain-Current: none Modifying Factors: Improves With: nothing Associated Symptoms: diarrhea, No chest pain, No nausea, No shortness of breath, No vomiting, No weakness Previous symptoms: no prior history, no recent treatment Allergies/Adverse Reactions: No Known Drug Allergies Allergy (Verified 07/18/23 17:16) Home Medications: Lisinopril/Hydrochlorothiazide [Lisinopril-Hctz 20-25 mg Tab] 20 - 25 mg PO DAILY 04/02/22 [History] Trazodone HCl 300 mg PO HS 04/02/22 [History] Aspirin 325 mg PO DAILY 04/14/22 [History] Hx Tetanus, Diphtheria Vaccination/Date Given: Yes Hx Influenza Vaccination/Date Given: Yes Hx Pneumococcal Vaccination/Date Given: No Travel Risk - Emerging Infectious Disease Are you exhibiting symptoms associated with any current EIDs: No - Review of Systems Constitutional: No Symptoms Eyes: No Symptoms Ears, Nose, & Throat: No Symptoms Respiratory: No Symptoms Cardiac: No Symptoms Abdominal/Gastrointestinal: Diarrhea, Hematochezia, Melena, No Abdominal Pain, No Nausea, No Vomiting Genitourinary Symptoms: No Symptoms Musculoskeletal: No Symptoms Skin: No Symptoms Neurological: No Symptoms Psychological: No Symptoms Endocrine: No Symptoms Hematologic/Lymphatic: No Symptoms Immunological/Allergic: No Symptoms All Other Systems: Reviewed and Negative - Past Medical History Pertinent Past Medical History: Yes Neurological History: No Pertinent History ENT History: Cataracts Cardiac History: Hypertension Respiratory History: No Pertinent History Endocrine Medical History: No Pertinent History Musculoskeletal History: No Pertinent History GI Medical History: Other History: No Pertinent History Psycho-Social History: No Pertinent History Male Reproductive Disorders: No Pertinent History Other Medical History: Formerly DM2 prior to gastric bypass - Past Surgical History Past Surgical History: Yes Neuro Surgical History: No Pertinent History Cardiac: No Pertinent History Respiratory: No Pertinent History Gastrointestinal: Other Genitourinary: No Pertinent History Musculoskeletal: No Pertinent History Male Surgical History: No Pertinent History Other Surgical History: GASTRIC BYPASS, REMOVAL OF ORAL CANCER 3 YRS AGO, bilateral hand surgery - Social History Smoking Status: Never smoker Exposure to second hand smoke: No Drug Use: none Patient Lives Alone: No - Nursing Vital Signs Nursing Vital Signs: Initial Vital Signs Temperature 97.4 F 07/18/23 17:17 Pulse Rate 94 H 07/18/23 17:17 Respiratory Rate 23 07/18/23 17:17 Blood Pressure 134/94 07/18/23 17:17 O2 Sat by Pulse Oximetry 98 07/18/23 17:17 Pain Scale Pain Intensity 0 - Physical Exam General Appearance: no apparent distress, alert Eye Exam: PERRL/EOMI, eyes nml inspection Ears, Nose, Throat Exam: normal ENT inspection, moist mucous membranes Neck Exam: normal inspection, non-tender, supple, full range of motion Respiratory Exam: normal breath sounds, lungs clear, airway intact, No chest tenderness, No respiratory distress Cardiovascular Exam: regular rate/rhythm, normal heart sounds, normal peripheral pulses Gastrointestinal/Abdomen Exam: soft, normal bowel sounds, No tenderness Rectal Exam: not done Back Exam: normal inspection, normal range of motion, No CVA tenderness, No vertebral tenderness Extremity Exam: normal inspection, normal range of motion, pelvis stable Neurologic Exam: alert, oriented x 3, cooperative, getterer II-XII nml as tested, normal mood/affect, nml cerebellar function, nml station & gait, sensation nml Skin Exam: normal color, warm, dry Lymphatic Exam: No adenopathy SpO2 Interpretation: normal O2 Delivery: Room Air - Course Nursing assessment & vital signs reviewed: Yes Ordered Tests: Active Orders 24 hr Category Date Time Status IV Insertion STAT Care 07/18/23 17:33 Active ABDOMEN AND PELVIS W/0 CONTRAS [CT] Stat Exams 07/18/23 17:34 Completed AMYLASE Stat Lab 07/18/23 17:58 Completed CBC W DIFF Stat Lab 07/18/23 17:58 Completed CMP Stat Lab 07/18/23 17:58 Completed LIPASE Stat Lab 07/18/23 17:58 Completed PROTIME WITH INR Stat Lab 07/18/23 17:58 Completed Medication Summary Discontinued Medications Generic Name Dose Route Start Last Admin Trade Name Freq PRN Reason Stop Dose Admin Sodium Chloride 1,000 mls @ 999 mls/hr 07/18/23 17:33 07/18/23 19:16 Sodium Chloride 0.9% 1000 Ml IV 07/18/23 18:33 Infused .Q1H1M STA Infusion Sodium Chloride Confirm 07/18/23 18:16 Sodium Chloride 0.9% 1000 Ml Administered 07/18/23 18:17 Dose 1,000 mls @ ud .ROUTE .STK-MED ONE Pantoprazole Sodium 40 mg 07/18/23 17:33 07/18/23 18:14 Pantoprazole 40 Mg Vial IV 07/18/23 17:34 40 mg STAT ONE Administration Pantoprazole Sodium Confirm 07/18/23 18:16 Pantoprazole 40 Mg Vial Administered 07/18/23 18:17 Dose 40 mg IV .STK-MED ONE Lab/Rad Data: Laboratory Result Diagrams 07/18/23 17:58 07/18/23 17:58 Laboratory Results 07/18/23 07/18/23 07/18/23 Range/Units 18:32 17:58 17:58 WBC (4.0-10.5) x10^3/uL RBC (4.1-5.6) x10^6/uL Hgb (12.5-18.0) g/dL Hct (42-50) % MCV (78-100) fL MCH (26-32) pg MCHC (32-36) g/dL RDW (11.5-14.0) % Plt Count (150-450) x10^3/uL MPV (7.5-11.0) fL Gran % (36.0-66.0) % Immature Gran % (Auto) (0.00-0.4) % Nucleat RBC Rel Count (0.00-0.1) % Eos # (Auto) (0-0.5) x10^3/uL Immature Gran # (Auto) (0.00-0.03) x10^3u/L Absolute Lymphs (auto) (1.0-4.6) x10^3/uL Absolute Monos (auto) (0.0-1.3) x10^3/uL Absolute Nucleated RBC (0.00-0.01) x10^3u/L Lymphocytes % (24.0-44.0) % Monocytes % (0.0-12.0) % Eosinophils % (0.00-5.0) % Basophils % (0.0-0.4) % Absolute Granulocytes (1.4-6.9) x10^3/uL Basophils # (0-0.4) x10^3/uL PT 12.0 (9.4-12.5) SECONDS INR 1.11 (0.8-3.0) Sodium 136 (135-145) mmol/L Potassium 4.5 (3.5-5.1) mmol/L Chloride 103 (98-107) mmol/L Carbon Dioxide 27 (22-30) mmol/L Anion Gap 10.4 (5-15) MEQ/L BUN 23 H (9-20) mg/dL Creatinine 0.67 (0.66-1.25) mg/dL Estimated GFR 104.9 ML/MIN Glucose 144 H (74-106) mg/dL Calcium 8.9 (8.4-10.2) mg/dL Total Bilirubin 0.70 (0.2-1.3) mg/dL AST 25 (17-59) U/L ALT 23 (0-50) U/L Alkaline Phosphatase 66 (38-126) U/L Serum Total Protein 6.3 (6.3-8.2) g/dL Albumin 3.4 L (3.5-5.0) g/dL Amylase 47 (30-110) U/L Lipase 26 (23-300) U/L C. difficile Screen NEGATIVE (NEGATIVE) C.difficile 027-[id number] PRESUMPTIVE NEGATIVE (NEGATIVE) 07/18/23 Range/Units 17:58 WBC 8.3 (4.0-10.5) x10^3/uL RBC 3.78 L (4.1-5.6) x10^6/uL Hgb 11.4 L (12.5-18.0) g/dL Hct 34.5 L (42-50) % MCV 91.3 (78-100) fL MCH 30.2 (26-32) pg MCHC 33.0 (32-36) g/dL RDW 12.8 (11.5-14.0) % Plt Count 241 (150-450) x10^3/uL MPV 10.1 (7.5-11.0) fL Gran % 69.4 H (36.0-66.0) % Immature Gran % (Auto) 0.4 (0.00-0.4) % Nucleat RBC Rel Count 0.0 (0.00-0.1) % Eos # (Auto) 0.02 (0-0.5) x10^3/uL Immature Gran # (Auto) 0.03 (0.00-0.03) x10^3u/L Absolute Lymphs (auto) 1.94 (1.0-4.6) x10^3/uL Absolute Monos (auto) 0.54 (0.0-1.3) x10^3/uL Absolute Nucleated RBC 0.00 (0.00-0.01) x10^3u/L Lymphocytes % 23.3 L (24.0-44.0) % Monocytes % 6.5 (0.0-12.0) % Eosinophils % 0.2 (0.00-5.0) % Basophils % 0.2 (0.0-0.4) % Absolute Granulocytes 5.76 (1.4-6.9) x10^3/uL Basophils # 0.02 (0-0.4) x10^3/uL PT (9.4-12.5) SECONDS INR (0.8-3.0) Sodium (135-145) mmol/L Potassium (3.5-5.1) mmol/L Chloride (98-107) mmol/L Carbon Dioxide (22-30) mmol/L Anion Gap (5-15) MEQ/L BUN (9-20) mg/dL Creatinine (0.66-1.25) mg/dL Estimated GFR ML/MIN Glucose (74-106) mg/dL Calcium (8.4-10.2) mg/dL Total Bilirubin (0.2-1.3) mg/dL AST (17-59) U/L ALT (0-50) U/L Alkaline Phosphatase (38-126) U/L Serum Total Protein (6.3-8.2) g/dL Albumin (3.5-5.0) g/dL Amylase (30-110) U/L Lipase (23-300) U/L C. difficile Screen (NEGATIVE) C.difficile 027-[id number] (NEGATIVE) - Progress Progress Note: 07/18/23 18:11 My medical decision making and the assignment of moderate complexity to this patient's medical issue today is based on review of the patient's past medical history, review of the patient's medication list, review of patient drug allergy list, history present illness and physical findings on examination. This patient's workup includes placement of intravenous line, CBC, CMP, PT/INR, infu matt of 1 L normal saline solution, infusion of Protonix CT scan of abdomen pelvis without contrast. Differential diagnosis includes gastritis, Eula-en-Y suture line irritation/inflammation, peptic ulcer disease, colitis, diverticulitis 07/18/23 20:35 I interpreted the patient's laboratory data results. Patient has a very mildly low hemoglobin. There is no reason to admit this patient for any type of blood transfusion at this time. He is hemodynamically stable. The CT scan of the abdomen pelvis was interpreted by radiologist and I reviewed the impression. Impression states no acute intra-abdominal or intrapelvic abnormality. There is an unremarkable appendix. Counseled pt/family regarding: lab results, diagnosis, need for follow-up, rad results Medical Desision Making - Independent Historian Additional History obtained from: Spouse - Diagnostic Testing Diagnostic test were ordered, analyzed, and reviewed by me: Yes Radiological Interpretation: Reviewed by me, Teleradiologist Report - Risk of complications Low Risk: Low risk of morbidity from additional dx testing or treatment - Departure Departure Disposition: Home Clinical Impression: Rectal bleeding Condition: Stable Critical Care Time: No Referrals: BRISEYDA MARIN MD [Primary Care Provider] - Follow up/PCP as directed Additional Instructions: Plenty of fluids. Avoid ibuprofen. Avoid Aleve, avoid all NSAIDs. Use Tylenol for pain. Call your primary care provider on 07/20/2023 to make arrangements for follow-up appointment for further evaluation and management and to be seen within 3 to 5 days. If symptoms recur and suddenly worsen, return to the emergency department for further acute evaluation management.
[2023-07-18 17:27] VITALS: TEMP 97.4
[2023-07-18 18:00] LABS: Absolute Neutrophil Ct (ANC) 5.76 x10^3/uL (1.4-6.9); BASOPHIL % 0.2 % (0.0-0.4); Basophil (Absolute #) 0.02 x10^3/uL (0-0.4); Eosinophil % 0.2 % (0.00-5.0); Eosinophil (Absolute #) 0.02 x10^3/uL (0-0.5); Hematocrit 34.5 % (42-50); Hemoglobin 11.4 g/dL (12.5-18.0); IMMATURE GRAN # 0.03 x10^3u/L (0.00-0.03); IMMATURE GRAN % 0.4 % (0.00-0.4); Lymphocyte (Absolute #) 1.94 x10^3/uL (1.0-4.6); Lymphocytes % 23.3 % (24.0-44.0); Mean Cell Volume 91.3 fL (78-100); Mean Corpuscular Hemoglobin 30.2 pg (26-32); Mean Platelet Volume 10.1 fL (7.5-11.0); Monocyte (Absolute #) 0.54 x10^3/uL (0.0-1.3); Monocytes % 6.5 % (0.0-12.0); Neutrophil % 69.4 % (36.0-66.0); Platelet Count 241 x10^3/uL (150-450); Red Blood Count 3.78 x10^6/uL (4.1-5.6); Red Cell Distribution Width 12.8 % (11.5-14.0); White Blood Count 8.3 x10^3/uL (4.0-10.5)
[2023-07-18] MEDS: Sodium Chloride 0.9% 1000 ML 1,000 ML IV STA (18:13)
[2023-07-18] MEDS: PROTONIX 40 MG IV IV ONE (18:14)
[2023-07-18 18:15] LABS: ALBUMIN 3.4 g/dL (3.5-5.0); ANION GAP 10.4 MEQ/L (5-15); BILIRUBIN,TOTAL 0.7 mg/dL (0.2-1.3); Calcium 8.9 mg/dL (8.4-10.2); Creatinine 1 0.67 mg/dL (0.66-1.25); EST GLOMERULAR FILTRATION RATE 104.9 ML/MIN; INR 1.11 (0.8-3.0); Potassium 4.5 mmol/L (3.5-5.1); Total Protein 6.3 g/dL (6.3-8.2)
[2023-07-18] MEDS ORDERED: PROTONIX 40 MG IV IV ONE (18:16)
[2023-07-18] MEDS ORDERED: Sodium Chloride 0.9% 1000 ML 1,000 ML ONE (18:16)
[2023-07-18 19:15] VITALS: O2SAT 98
[2023-07-18 19:18] LABS: 027 TOX PROD PRESUMPTIVE NEGATIVE (NEGATIVE); TOXIGENIC C. DIFF ORG NEGATIVE (NEGATIVE)
--- NOTE | 2023-07-18 20:07 | XRAY ---
CLINICAL HISTORY: Bloody stools COMPARISON: None. TECHNIQUE: CT of the abdomen and pelvis was performed with axial images as well as sagittal and coronal reconstruction images without intravenous contrast. One of the following dose reduction techniques were utilized for this exam: Automated exposure control, adjustment of the mA and/or kV according to patient size, and use of iterative reconstruction. FINDINGS: Basal thoracic cuts: clear lung bases. Abdomen: The liver is normal in size showing multiple calcific foci. No other focal or diffuse parenchymal abnormality. The portal vein, intrahepatic biliary radicals, and the bile ducts are normal. The spleen shows multiple calcific foci. The pancreas and adrenal glands are unremarkable. The kidneys are unremarkable. They are normal in size and shape. No calculi or hydronephrosis. The gallbladder is normal. No pericholecystic collection or radio-dense calculi in the gall bladder. There is no evidence of significant mesenteric or retroperitoneal lymph node enlargement. Stomach and bowel: evidence of bariatric surgery is seen. No abnormality was detected. The appendix is unremarkable. Pelvis: The urinary bladder is unremarkable. The prostate is unremarkable. The pelvic vasculature is unremarkable. No evidence of pelvic lymphadenopathy. Skeletal system: No suspicious bony lesion detected. Degenerative changes are seen in the spine. IMPRESSION: No acute intra-abdominal and pelvis abnormality. Prior gastric surgery. Hepatic and splenic calcific foci are seen as likely granulomatous. Electronically Signed by: Lanre Cárdenas MD. (07/18/2023 20:02:54 EDT)
[2023-07-18 20:23] VITALS: PULSE 80
[2023-07-18 21:02] VITALS: BP 129/80; RESP 18
== END 2023-07-18 21:01 | disposition home or self-care (01) ==
LOC: ED 17:10
DX: K62.5 Hemorrhage of anus and rectum (principal); R42 Dizziness and giddiness; I10 Essential (primary) hypertension; Z79.899 Other long term (current) drug therapy
CPT/HCPCS: 36000; 36415; 74176; 80053; 82150; 83690; 85025; 85610; 87493; 96360; 96374; 99284

== ENCOUNTER 2025-01-18 10:46 | Emergency (ER) | payer OTHER ==
[2025-01-18 11:00] VITALS: TEMP 97
--- NOTE | 2025-01-18 11:15 | ERPHSYRPT ---
- History of Present Illness Patient Subjective Stated Complaint: patient states he fell off a ladder being 2 steps up and his tailbone is hurting, did hit head on a chair Triage Nursing Assessment: patient presents to ed via private vehicle, patient able to ambulate into ed without complication, patient alert and oriented x 4, skin pwd, patient denies headache, c/o pain to tailbone area, denies pain to any other extremities Physician History: Follow-up, patient was 2 steps on a ladder lost his balance fell backwards and the pavement onto his buttocks, he continues to have pain about his low back, he is able to ambulate but has pain, he denies any painful radiation to his lower extremities, he denies any weakness, he had no loss of consciousness, he did not hit his head, he denied blood thinners Allergies/Adverse Reactions: No Known Drug Allergies Allergy (Verified 07/18/23 17:16) Home Medications: Lisinopril/Hydrochlorothiazide [Lisinopril-Hctz 20-25 mg Tab] 20 - 25 mg PO DAILY 04/02/22 [History] Trazodone HCl 150 mg PO HS 04/02/22 [History] Aspirin 325 mg PO DAILY 04/14/22 [History] Hx Tetanus, Diphtheria Vaccination/Date Given: Yes Hx Influenza Vaccination/Date Given: Yes Hx Pneumococcal Vaccination/Date Given: No Travel Risk - International Travel Have you traveled outside of the country in past 3 weeks: No - Emerging Infectious Disease Are you exhibiting symptoms associated with any current EIDs: No Symptoms: Diarrhea - Past Medical History Pertinent Past Medical History: Yes Neurological History: No Pertinent History ENT History: Cataracts Cardiac History: Hypertension Respiratory History: No Pertinent History Endocrine Medical History: No Pertinent History Musculoskeletal History: No Pertinent History GI Medical History: Other History: No Pertinent History Psycho-Social History: No Pertinent History Male Reproductive Disorders: No Pertinent History Other Medical History: Formerly DM2 prior to gastric bypass - Past Surgical History Past Surgical History: Yes Neuro Surgical History: No Pertinent History Cardiac: No Pertinent History Respiratory: No Pertinent History Gastrointestinal: Other Genitourinary: No Pertinent History Musculoskeletal: No Pertinent History Male Surgical History: No Pertinent History Other Surgical History: GASTRIC BYPASS, REMOVAL OF ORAL CANCER 3 YRS AGO, bilateral hand surgery - Social History Smoking Status: Never smoker Exposure to second hand smoke: No Drug Use: none - Social Determinants of Health Will the patient participate in the screening: Yes Do you worry about a steady place to live?: No Do you have any problems with any of the following?: No known problems In the past 12 months,have you had to go without utilities?: No Transportation Issues: No Has anyone in your support network made you feel unsafe?: No Have you or anyone in your house had to go w/o enough food: No - Nursing Vital Signs Nursing Vital Signs: Initial Vital Signs Temperature 97 F 01/18/25 10:46 Pulse Rate 63 01/18/25 10:46 Respiratory Rate 16 01/18/25 10:46 Blood Pressure 162/88 01/18/25 10:46 O2 Sat by Pulse Oximetry 97 01/18/25 10:46 Pain Scale Pain Intensity 7 - [place] Coma Score Best Eye Response ([place]): (4) open spontaneously Best Verbal Response ([place]): (5) oriented Best Motor Response ([place]): (6) obeys commands [place] Total: 15 - Physical Exam General Appearance: no apparent distress, alert Head Injury: no evidence of injury Eye Exam: PERRL/EOMI, eyes nml inspection ENT Exam: airway nml Neck Exam: supple, trachea midline, full range of motion Back Exam: point tenderness (L4-sacrum) Extremity Exam: normal inspection, normal range of motion, pelvis stable Neurologic Exam: alert, oriented x 3, cooperative, normal mood/affect Skin Exam: normal color, warm SpO2 Interpretation: normal SpO2: 97 Ordered Tests: Active Orders 24 hr Category Date Time Status LUMBAR COMPLETE (MIN 4 VIEWS) Stat Exams 01/18/25 11:02 Completed - Progress Progress Note: 01/18/25 11:38 Discussed x-ray results, recommend outpatient follow-up to primary care doctor, recommend ice, NSAIDs for pain - Departure Departure Disposition: Home Clinical Impression: Sacral contusion Qualifiers: Encounter type: initial encounter Qualified Code(s): S30.0XXA - Contusion of lower back and pelvis, initial encounter Condition: Stable Critical Care Time: No Referrals: BRISEYDA MARIN MD [Primary Care Provider, [facility]] - Follow up PCP 10 days Instructions: Taking care of bruises, Low back pain in adults Additional Instructions: Ice to area of pain 10 to 15 minutes, 3-4 times a day, ibuprofen 2-3 tabs 3 times a day, follow-up with primary care doctor 1 to 2 weeks for recheck
--- NOTE | 2025-01-18 11:33 | XRAY ---
Indication: Fall. Comparison: None 5 view lumbar spine demonstrates 6 lumbar segments in normal alignment with osteopenia, mild/moderate multilevel thoracolumbar degenerative spondylosis, and minimal anterior wedging T12 segment unchanged with respect to CT abdomen/pelvis July 18, 2023. No new/acute abnormalities.
[2025-01-18 11:50] VITALS: BP 145/83; PULSE 61; RESP 18; O2SAT 99
== END 2025-01-18 11:54 | disposition home or self-care (01) ==
LOC: ED 10:46
DX: S30.0XXA Contusion of lower back and pelvis, initial encounter (principal); W11.XXXA Fall on and from ladder, initial encounter; I10 Essential (primary) hypertension; Z79.899 Other long term (current) drug therapy